=== PATIENT | female | born 1980 | race Caucasian/White ===

== ENCOUNTER → 2020-08-15 15:50 | Outpatient (CLI) | payer OTHER, SELFPAY ==
--- NOTE | ~2020-08-15 | MM_ITS ---
EXAMINATION: MM screening delfino BI w rebecca HISTORY: Screening mammogram TECHNIQUE: Craniocaudal and mediolateral oblique 3-D tomosynthesis images were obtained and synthetic 2-D images were generated. CAD analysis was submitted and interpreted. COMPARISON: 06/22/2019 bilateral digital screening mammogram BREAST PARENCHYMAL COMPOSITION: The breasts are heterogeneously dense, which may obscure small masses .. FINDINGS: There is no evidence of suspicious mass, calcification, or architectural distortion to sugg est malignancy in either breast. There has been no suspicious interval change. IMPRESSION: 1. No mammographic evidence of malignancy. 2. Recommend routine screening mammography in one year. BI-RADS Category 1: Negative Reviewed, dictated and finalized at location A.
== END ==
PROVIDERS: PCP Internal Medicine; Visit Provider Physician Assistant Medical
DX: Z12.31 Encounter for screening mammogram for malignant neoplasm of breast (principal)
CPT/HCPCS: 77063; 77067

== ENCOUNTER → 2021-07-26 07:58 | Outpatient (CLI) | payer OTHER, SELFPAY ==
--- NOTE | ~2021-07-26 | MR_ITS ---
EXAMINATION: MR knee RT wo con DATE: 07/26/2021 08:47 INDICATION: Generalized right knee pain and clicking TECHNIQUE: Magnetic resonance imaging (MRI) of the right knee was performed without intravenous contr ast. Sequences included coronal PD-weighted FSE, coronal PD-weighted FS FSE, sagittal T2-weighted FS E, sagittal PD-weighted FS FSE and axial PD weighted fat saturated FSE. COMPARISON: None. FINDINGS: Medial compartment: The posterior horn of the medial meniscus is small and there is minimal residual tissue at the body c onsistent with change of prior partial meniscectomy. No residual/recurrent tear. There is high-grade chondromalacia with chondral ulceration and deep fissuring with associated irregularity of the articu lar cortex with mild subarticular cystic change, sclerosis and edema. Additional deep chondral fissur ing with underlying subarticular edema at the medial rim at the medial tibial plateau. Lateral compartment: Lateral meniscus is normal. Articular cartilage is normal. Patellofemoral compartment: Partial-thickness chondral fissuring involving greater than 50% the cartilage thickness along the inf erior aspect of the medial trochlea. Ligaments and tendons: Oblique tear of the anterior cruciate ligament. Posterior cruciate ligament is normal. Medial collate ral ligament is normal. There is mild increased signal and thickening of the possible fibular collate ral ligament without surrounding edema suspected mild scarring related to chronic sprain. The patella r tendon is normal. Minimal tendinopathy in the distal quadriceps tendon. The visualized medial and l ateral hamstring tendons as well as the iliotibial band are normal. Fluid: Physiologic amount of fluid in the joint space. No loose osteochondral bodies identified. Osseous/other: Negligible anterior subluxation of the tibia with respect to the distal femur likely related to the a nterior cruciate ligament tear. No fracture or pathologic marrow replacing process. IMPRESSION: 1. Complete tear of the anterior cruciate ligament. 2. Extensive medial meniscectomy without evident residual/recurrent tear. 3. 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 4. Minimal patellofemoral osteoarthritis with some moderate grade chondromalacia along the medial tro chlea. 5. Mild scarring consistent with chronic sprain at the proximal fibular collateral ligament. Reviewed, dictated and finalized at location A. IMPRESSION: 1. Complete tear of the anterior cruciate ligament. 2. Extensive medial meniscectomy without evident residual/recurrent tear. 3. 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 4. Minimal patellofemoral osteoarthritis with some moderate grade chondromalaci a along the medial trochlea. 5. Mild scarring consistent with chronic sprain at the proximal fibular collate ral ligament.
== END ==
PROVIDERS: PCP Internal Medicine; Visit Provider Internal Medicine
DX: M25.561 Pain in right knee (principal); S83.511A Sprain of anterior cruciate ligament of right knee, initial encounter; Z98.890 Other specified postprocedural states; M17.11 Unilateral primary osteoarthritis, right knee; M94.261 Chondromalacia, right knee
CPT/HCPCS: 73721

== ENCOUNTER → 2021-08-19 16:14 | Outpatient (CLI) | payer OTHER, SELFPAY ==
--- NOTE | ~2021-08-19 | MM_ITS ---
EXAMINATION: MM screening delfino BI w rebecca HISTORY: Screening mammogram TECHNIQUE: Craniocaudal and mediolateral oblique 3-D tomosynthesis images were obtained and synthetic 2-D images were generated. CAD analysis was submitted and interpreted. COMPARISON: 08/15/2020, 06/22/2019 bilateral digital screening mammogram examinations BREAST PARENCHYMAL COMPOSITION: The breasts are heterogeneously dense, which may obscure small masses . FINDINGS: There is no evidence of suspicious mass, calcification, or architectural distortion to sugg est malignancy in either breast. There has been no suspicious interval change. IMPRESSION: 1. No mammographic evidence of malignancy. 2. Recommend routine screening mammography in one year. BI-RADS Category 1: Negative Reviewed, dictated and finalized at location A.
== END ==
PROVIDERS: PCP Internal Medicine; Visit Provider Internal Medicine
DX: Z12.31 Encounter for screening mammogram for malignant neoplasm of breast (principal)
CPT/HCPCS: 77063; 77067

== ENCOUNTER → 2022-09-24 08:16 | Outpatient (CLI) | payer OTHER, SELFPAY ==
--- NOTE | ~2022-09-24 | MMUS_ITS ---
EXAMINATION: MM diagnostic delfino BI w rebecca, US breast RT limited HISTORY: Palpable lump in the upper outer quadrant of the right breast TECHNIQUE: Craniocaudal, mediolateral, and mediolateral oblique 3-D tomosynthesis images of the mary carmen ts were performed and synthetic 2-D images were generated. CAD analysis was submitted and interpreted . High resolution limited right breast ultrasound was performed. COMPARISON: 08/19/2021, 08/15/2020, 06/22/2019 BREAST PARENCHYMAL COMPOSITION: The breasts are heterogeneously dense, which may obscure small masses . FINDINGS: MAMMOGRAPHIC FINDINGS: No suspicious mass, calcification, or architectural distortion are identified in either breast to sug gest malignancy. There has been no suspicious interval change. No mammographic correlate is identifie d for the reported palpable abnormality of the right breast. ULTRASOUND: There is no evidence of focal abnormal solid or cystic mass in the vicinity of the reported palpable abnormality of concern in the right breast. IMPRESSION: 1. No specific mammographic or sonographic correlate is identified for the reported palpable abnormal ity of concern. Further evaluation at this time should be based on clinical assessment. Continued fol low-up physical examination is recommended. 2. Recommend routine screening mammography in one year. BI-RADS Category 1: Negative Reviewed, dictated and finalized at location A. IMPRESSION: 1. No specific mammographic or sonographic correlate is identified for the repo rted palpable abnormality of concern. Further evaluation at this time should be based on clinical assessment. Continued follow-up physical examination is dulce mmended. 2. Recommend routine screening mammography in one year. BI-RADS Category 1: Negative
== END ==
PROVIDERS: PCP Physician Assistant Medical; Visit Provider Physician Assistant Medical
DX: N63.10 Unspecified lump in the right breast, unspecified quadrant (principal)
CPT/HCPCS: 76642; 77062; 77066; G0279

== ENCOUNTER 2024-04-20 06:57 | Day surgery (SDC) | payer OTHER, SELFPAY ==
[2023-12-07 11:58] VITALS: BMI 24.9
[2024-04-05 14:33] VITALS: BMI 25.6
--- NOTE | 2024-04-19 14:52 | WPDANESEPPF ---
Anes - Initial Pre Proc Eval Procedure: Operation Date: 04/20/24 09:00 Proposed Procedures p Screening Colonoscopy - Paulo Headley MD <Paolo Ivy, DO - Last Filed: 04/20/24 14:10> Date/Time: 04/19/24 14:52 <Paolo Ivy DO - Last Filed: 04/20/24 14:10> Surgeon: Paulo Headley MD <Paolo Ivy, DO - Last Filed: 04/20/24 14:10> Pre Op Diagnosis: Family history of colon cancer <Paolo Ivy DO - Last Filed: 04/20/24 14:10> Patient Data Age: 44 Gender: F Height: 1.55 m Weight: 61.5 kg <Paolo Ivy DO - Last Filed: 04/20/24 14:10> Allergies Allergy/AdvReac Type Severity Reaction Status Date / Time adhesive tape AdvReac Intermediate Rash Verified 04/20/24 07:46 <Paolo Ivy DO - Last Filed: 04/20/24 14:10> Home Medications Medication Instructions Recorded Confirmed Type fluticasone propionate 50 1 spray intranasal DAILY 08/18/22 04/20/24 History mcg/actuation nasal spray,suspension loratadine 10 mg tablet (Claritin) 10 mg PO DAILY 08/18/22 04/20/24 History drospiren-e.estrad-l.mefol 3 1 tablet PO DAILY #84 tabs 11/19/23 04/20/24 Rx mg-0.03 mg-0.451 mg(21)/0.451 mg(7)tablet ascorbic acid (vitamin C) 500 mg 500 mg PO DAILY 04/05/24 04/20/24 History tablet cholecalciferol (vitamin D3) 25 25 mcg PO DAILY 04/05/24 04/20/24 History mcg (1,000 unit) chewable tablet (Vitamin D3) mecobalamin (vitamin B12) 1,000 1,000 mcg PO DAILY 04/05/24 04/20/24 History mcg chewable tablet vitamin B complex 1 cap PO DAILY 04/05/24 04/20/24 History <Paolo Ivy, DO - Last Filed: 04/20/24 14:10> Patient hx anesthesia problems: none <Ananya Liu CRNA - Last Filed: 04/20/24 09:14> Family hx anesthesia problems: none <Ananya Lui CRNA - Last Filed: 04/20/24 09:14> Results Review: All pre-operative results and documents have been reviewed as part of the pre-operative evaluation. <Paolo Ivy DO - Last Filed: 04/20/24 14:10> [facility] Surgical History Surgical History: Surgical History (Updated 11/19/23 @ 08:36 by Callie Santana PA-C) History of repair of ACL left 2004, right 2020 <Paolo Ivy DO - Last Filed: 04/20/24 14:10> Social History Social History: Social History (Updated 11/19/23 @ 08:17 by Nitza Aguillon) Smoking status: Never smoker Alcohol intake: current Drinks per week: 3 Alcohol use details: social Substance use: never Substance use type: does not use Lack of Transportation: No Lack of Food: Never True Current Housing: I Have Housing Concerned About Future Housing: No Difficulty Paying Gas/Electric Bills: No Difficulty Paying for Meds: No Currently Unemployed: No Education: Bachelor's Degree Difficulty w/ Childcare or Family Care: No Living arrangements: with family Occupation/Education: occupation Gender identity (if verbalized by the patient): Female Spiritual care concerns: No <Paolo Ivy DO - Last Filed: 04/20/24 14:10> Anes - Eval Final PreProcedure Day of Procedure 04/19/24 14:52 <Paolo Ivy DO - Last Filed: 04/20/24 14:10> Patient weight: normal <Paolo Ivy DO - Last Filed: 04/20/24 14:10> Heart: regular rate and rhythm <Paolo Ivy DO - Last Filed: 04/20/24 14:10> Lungs: clear to auscultation and normal air movement <Paolo Ivy DO - Last Filed: 04/20/24 14:10> Airway: Mallampati scale class II <Paolo Ivy DO - Last Filed: 04/20/24 14:10> Neurological: alert and oriented <Paolo Ivy DO - Last Filed: 04/20/24 14:10> Last oral intake: >/= 8 hours <Paolo Ivy DO - Last Filed: 04/20/24 14:10> ASA classification: I <Paolo Ivy, DO - Last Filed: 04/20/24 14:10> Emergent: no <Jenifer
[2024-04-20 07:50] VITALS: BP 107/64; PULSE 57; RESP 16; TEMP 36.9; O2SAT 100
--- NOTE | 2024-04-20 07:56 | PM.HPGS ---
History of Present Illness History of Present Illness Consent: Risks, benefits, and alternatives have been discussed and questions answered. Patient agrees to proceed with procedure. Chief complaint: Family history of colon cancer Narrative: Lorri Barreto is a 44 year old female presents for screening colonoscopy. Patient's current weight appetite and bowel movements are normal. Family history is significant that her father with colon cancer. Patient is unaware of any other family members with colon polyps. Is that her weight appetite bowel movements are normal she has no bleeding. Review of Systems Review of Systems: All systems reviewed & are unremarkable except as noted in HPI and below PMFSH Surgical History Surgical History (Updated 11/19/23 @ 08:36 by Callie Santana PA-C) History of repair of ACL left 2004, right 2020 Social History Social History (Updated 11/19/23 @ 08:17 by Nitza Aguillon) Smoking status: Never smoker Alcohol intake: current Drinks per week: 3 Alcohol use details: social Substance use: never Substance use type: does not use Lack of Transportation: No Lack of Food: Never True Current Housing: I Have Housing Concerned About Future Housing: No Difficulty Paying Gas/Electric Bills: No Difficulty Paying for Meds: No Currently Unemployed: No Education: Bachelor's Degree Difficulty w/ Childcare or Family Care: No Living arrangements: with family Occupation/Education: occupation Gender identity (if verbalized by the patient): Female Spiritual care concerns: No Meds Home Medications and Allergies Home Medications Medication Instructions Recorded Confirmed Type fluticasone propionate 50 1 spray intranasal DAILY 08/18/22 04/20/24 History mcg/actuation nasal spray,suspension loratadine 10 mg tablet (Claritin) 10 mg PO DAILY 08/18/22 04/20/24 History drospiren-e.estrad-l.mefol 3 1 tablet PO DAILY #84 tabs 11/19/23 04/20/24 Rx mg-0.03 mg-0.451 mg(21)/0.451 mg(7)tablet ascorbic acid (vitamin C) 500 mg 500 mg PO DAILY 04/05/24 04/20/24 History tablet cholecalciferol (vitamin D3) 25 25 mcg PO DAILY 04/05/24 04/20/24 History mcg (1,000 unit) chewable tablet (Vitamin D3) mecobalamin (vitamin B12) 1,000 1,000 mcg PO DAILY 04/05/24 04/20/24 History mcg chewable tablet vitamin B complex 1 cap PO DAILY 04/05/24 04/20/24 History Allergies Allergy/AdvReac Type Severity Reaction Status Date / Time adhesive tape AdvReac Intermediate Rash Verified 04/20/24 07:46 Vital Signs Vital Signs - 24 hr 04/20/24 07:50 Temperature 98.5 F Pulse Rate 57 L Respiratory Rate 16 Blood Pressure 107/64 Pulse Oximetry 100 Oxygen Delivery Room Air Exam Narrative: Physical exam reveals patient to be alert. Vital signs stable. Is unremarkable. Patient is anicteric. Lungs are clear to auscultation and to percussion. Heart is without murmur or extra sounds. Abdomen bowel sounds are present soft nontender with no organomegaly. Digital external rectal exam is normal. Assessment and Plan Assessment and plan (1) Family history of colon cancer in father: Code(s): Z80.0 - Family history of malignant neoplasm of digestive organs Status: Acute Assessment and Plan: Patient's father has had colon cancer. Plan for colonoscopy now and at 5 year intervals.
[2024-04-20] MEDS: LACTATED RINGERS 1,000 ML 150 ML IV CONT (08:19)
[2024-04-20 09:47] VITALS: BP 102/64; PULSE 63; RESP 14; O2SAT 100
[2024-04-20 09:56] VITALS: BP 109/93; PULSE 54; RESP 16; O2SAT 100
--- NOTE | 2024-04-20 14:10 | WPDANESPN ---
Anes - Prog Note Post-Op Date/Time: 04/20/24 14:10 Cardiovascular status: normal Respiratory status: normal Airway patency: baseline Mental status: baseline Post-Op hydration status: normal Vital Signs: Last Vital Signs Temp 36.9 C 04/20/24 07:50 Pulse 54 L 04/20/24 09:56 Resp 16 04/20/24 09:56 BP 109/93 H 04/20/24 09:56 Pulse Ox 100 04/20/24 09:56 O2 Del Method Room Air 04/20/24 09:56 Pain Score (VAS): 0 I/O: Intake & Output 04/19/24 04/20/24 04/20/24 23:59 07:59 15:59 Intake Total 550 Balance 550 Post-procedural complaints: none Patient Feedback: Patient satisfied with anesthetic care. Other Findings: Patient vital signs back to baseline. Patient denies nausea and vomiting. Patient's pain under control. Patient OK for discharge.
== END 2024-04-20 10:08 | disposition home or self-care (01) ==
PROVIDERS: PCP Physician Assistant Medical; Visit Provider Internal Medicine Gastroenterology
PROC: 0DJD8ZZ Inspection of Lower Intestinal Tract, Via Natural or Artificial Opening Endoscopic (ICD-10-PCS; CPT 45378; principal; 2024-04-20 09:00)
DX: Z80.0 Family history of malignant neoplasm of digestive organs (principal); Z12.11 Encounter for screening for malignant neoplasm of colon; K64.8 Other hemorrhoids
CPT/HCPCS: 45378